=== PATIENT | male | born 1990 | race Two or more races ===

== ENCOUNTER 2023-09-14 18:01 | Emergency (ER) | payer MEDICAID ==
[~2023-09-14] VITALS: Ht 165.1 cm; Wt 66.0 kg
[2023-09-14] MEDS: ACETAMINOPHEN 325 MG TAB PO ONE (19:02)
[2023-09-14] MEDS: IBUPROFEN 600 MG TAB PO ONE (19:03)
[2023-09-14 19:06] VITALS: BP 117/78; PULSE 102; RESP 18; TEMP 98.2; O2SAT 98
== END 2023-09-15 00:57 | disposition home or self-care (01) ==
LOC: EDSEX 18:01 → ER 18:01 → EDBD 18:01 → ER 09-15 00:57
DX: S90.822A Blister (nonthermal), left foot, initial encounter (principal); S90.821A Blister (nonthermal), right foot, initial encounter; F15.10 Other stimulant abuse, uncomplicated; X30.XXXA Exposure to excessive natural heat, initial encounter; Y93.89 Activity, other specified; Y92.89 Other specified places as the place of occurrence of the external cause; Y99.8 Other external cause status

== ENCOUNTER → 2023-09-14 | Emergency (ER) | payer MEDICAID, OTHER ==
[~2023-09-14] VITALS: Ht 167.6 cm; Wt 85.0 kg
[2023-09-14 00:32] VITALS: BP 125/82; PULSE 94; RESP 22; O2SAT 98
== END | disposition home or self-care (01) ==
LOC: ER 00:27
DX: M79.10 Myalgia, unspecified site (principal); Z53.21 Procedure and treatment not carried out due to patient leaving prior to being seen by health care provider